=== PATIENT | male | born 1945 | race Caucasian/White ===

== ENCOUNTER 2018-08-14 06:57 | Day surgery (SDC) | payer MEDICARE, BC ==
[~2018-08-14] VITALS: Ht 177.8 cm; Wt 74.8 kg
[2018-08-14] MEDS ORDERED: normal saline 1000ml 1,000 ML IV PRN (07:30)
[2018-08-14] MEDS ORDERED: MELA3TAB PO (07:45)
[2018-08-14] MEDS ORDERED: VERA120T2 PO (07:45)
[2018-08-14] MEDS ORDERED: OLME40TA18 PO (07:45)
[2018-08-14] MEDS ORDERED: LORA0.5T PO (07:45)
[2018-08-14] MEDS ORDERED: CHOL10002 PO (07:45)
[2018-08-14] MEDS ORDERED: ESOM20CA PO (07:45)
[2018-08-14] MEDS ORDERED: TADA5TAB2 PO (07:45)
[2018-08-14] MEDS ORDERED: LEVO175T2 PO (07:45)
[2018-08-14] MEDS ORDERED: OMEG-182 PO (07:45)
[2018-08-14] MEDS ORDERED: LIDOcaine 1%/PF 5ML 10 MG/ML VIAL ONE ×2 (09:16→09:59)
[2018-08-14 09:43] LABS: INR 1.1 INR
[2018-08-14 09:44] LABS: ALBUMIN 3.4 G/DL (3.4-5.0); ANION GAP 6 (8-16); BLOOD UREA NITROGEN 18 MG/DL (7-18); CALCIUM 9.7 MG/DL (8.5-10.1); CHLORIDE 105 MMOL/L (99-107); GLUCOSE 103 MG/DL (70-104); POTASSIUM 3.8 MMOL/L (3.5-5.1); SODIUM 140 MMOL/L (135-145); TOTAL CARBON DIOXIDE 28.9 MMOL/L (24-32); eGFR 73 ML/MIN
[2018-08-14 09:49] LABS: BASOPHILS # (AUTO) 0.1 X10'3 (0-0.2); BASOPHILS % (AUTO) 0.9 % (0-1); HEMOGLOBIN 16.1 g/dl (14.0-17.9)
[2018-08-14 09:50] LABS: EOSINOPHILS % (AUTO) 0.3 % (0-6); HEMATOCRIT 48.8 % (42.0-52.0); LYMPHOCYTES # (AUTO) 1.1 X10'3 (1.1-4.8); LYMPHOCYTES % (AUTO) 15.8 % (21-51); MEAN CORPUSCULAR HEMOGLOBIN 32.3 PG (27.0-31.0); MEAN CORPUSCULAR HGB CONC 32.9 g/dL (33.0-36.5); MEAN PLATELET VOLUME 9.7 FL (7.4-10.4); MONOCYTES # (AUTO) 0.9 X10'3 (0-0.9); MONOCYTES % (AUTO) 12.9 % (2-12); NEUTROPHILS # (AUTO) 4.8 X10'3 (1.8-7.7); NEUTROPHILS % (AUTO) 70.1 % (42-75); PLATELET COUNT 203 X10'3 (140-440); RED BLOOD COUNT 4.98 X10'6 (4.70-6.10); WHITE BLOOD COUNT 6.8 X10'3 (4.5-11.0)
[2018-08-14 10:02] LABS: GIANT PLATELET FEW; LARGE PLATELETS FEW; PLATELET ESTIMATE NORMAL
[2018-08-14 10:06] VITALS: BP 181/107
[2018-08-14] MEDS ORDERED: normal saline 1000ml 1,000 ML IV SCH (10:06)
--- NOTE | 2018-08-14 10:06 | NUR ---
PT PROCEDURE CANCELLED PER MD
[2018-08-14 13:07] VITALS: BP 173/104
== END 2018-08-14 10:15 | disposition home or self-care (01) ==
LOC: SSTAY O 06:57
PROVIDERS: ATTEND Radiology Diagnostic Radiology
DX: R74.8 Abnormal levels of other serum enzymes (principal); Z53.8 Procedure and treatment not carried out for other reasons; I10 Essential (primary) hypertension; Z79.899 Other long term (current) drug therapy
CPT/HCPCS: 36415; 76705; 80048; 85025; 85610; J2001; J7030

== ENCOUNTER 2020-07-29 07:33 | Day surgery (SDC) | payer MEDICARE, BC ==
[2020-07-22 15:26] LABS: BASOPHILS # (AUTO) 0.1 X10'3 (0-0.2); BASOPHILS % (AUTO) 0.9 % (0-1); EOSINOPHILS # (AUTO) 0.1 X10'3 (0-0.9); EOSINOPHILS % (AUTO) 0.9 % (0-6); LYMPHOCYTES # (AUTO) 1.2 X10'3 (1.1-4.8); LYMPHOCYTES % (AUTO) 17.5 % (21-51); MEAN CORPUSCULAR HEMOGLOBIN 32.2 PG (27.0-31.0); MEAN CORPUSCULAR HGB CONC 32.9 g/dL (33.0-36.5); MEAN CORPUSCULAR VOLUME 97.9 FL (78-98); MEAN PLATELET VOLUME 8.8 FL (7.4-10.4); MONOCYTES # (AUTO) 0.8 X10'3 (0-0.9); MONOCYTES % (AUTO) 11.5 % (2-12); NEUTROPHILS # (AUTO) 4.6 X10'3 (1.8-7.7); NEUTROPHILS % (AUTO) 69.2 % (42-75); PRE OP HEMATOCRIT 45.5 % (42.0-52.0); PRE OP PLATELET COUNT 201 X10'3 (140-440); RED BLOOD COUNT 4.65 X10'6 (4.70-6.10); RED CELL DISTRIBUTION WIDTH 15.5 % (11.5-14.5)
[2020-07-22 15:41] LABS: ALBUMIN 3.2 G/DL (3.4-5.0); ALBUMIN/GLOBULIN RATIO 0.6 (1.1-1.5); ALKALINE PHOSPHATASE 89 IU/L (46-116); BLOOD UREA NITROGEN 22 MG/DL (7-18); BUN/CREATININE RATIO 22.2 (5.4-32.0); CALCIUM 9.4 MG/DL (8.5-10.1); CHLORIDE 108 MMOL/L (99-107); CREATININE 0.99 MG/DL (0.60-1.10); PRE OP ALT 54 U/L (30-65); PRE OP ANION GAP 6 (8-16); PRE OP AST 34 U/L (10-37); PRE OP BILIRUB, TOTAL 0.6 MG/DL (0.0-1.0); PRE OP GLUCOSE 112 MG/DL (70-104); PRE OP POTASSIUM 3.8 MMOL/L (3.4-5.1); PRE OP SODIUM 141 MMOL/L (135-145); TOTAL CARBON DIOXIDE 26.6 MMOL/L (24-32); TOTAL PROTEIN 8.2 G/DL (6.4-8.2); eGFR 73 ML/MIN
[2020-07-29] VITALS (15 sets, daily range): BP systolic 124–169; BP diastolic 59–88
[~2020-07-29] VITALS: Ht 177.8 cm; Wt 73.5 kg
[~2020-07-29 07:33] MED LIST: BUPIVAcaine/PF 2.5 mg/ml (0.25%) 30ml vial ONE; CHOL10002 PO; ESOM20CA PO; LEVO175T2 PO; LIDOcaine 1% 30ml preserv. free vial ONE; LORA0.5T PO; MELA3TAB39 PO; OLME40TA18 PO; OMEG-182 PO; TADA5TAB2 PO; TRIA15CR61 TOP; VERA120T2 PO; ceFAZolin 2gm in dextrose, iso 50 ML IV ONE; famotidine 20mg tablet PO ONE; ringers solution, lacted 1,000 ML IV SCH
[2020-07-29] MEDS ORDERED: meperidine/PF 25mg/ml syringe IV PRN ×3 (08:55)
[2020-07-29] MEDS ORDERED: morphine 2 MG/ML inj. syringe IV PRN (08:55)
[2020-07-29] MEDS ORDERED: ringers solution, lacted 1,000 ML IV SCH (08:55)
[2020-07-29] MEDS ORDERED: morphine 4 MG/ML inj SYRINge IV PRN (08:55)
[2020-07-29] MEDS ORDERED: ondansetron/PF 4mg/2ml inj IV PRN (08:55)
[2020-07-29] MEDS ORDERED: proCHLORperazine 10 MG/2 ml inj IV PRN (08:55)
[2020-07-29] MEDS ORDERED: fentaNYL/PF 50MCG/1 ML 2ML syringe ONE (09:57)
[2020-07-29] MEDS ORDERED: midazolam 1 mg/ML 2ml injection ONE (09:58)
[2020-07-29] MEDS ORDERED: rocuronium 10mg/ml inj IV ONE (10:01)
[2020-07-29] MEDS ORDERED: propofol inj 20 ML IV ONE (10:02)
[2020-07-29] MEDS ORDERED: glycopyrrolate 0.2mg/ml inj ONE (11:10)
[2020-07-29] MEDS ORDERED: ondansetron/PF 4mg/2ml inj ONE (11:10)
[2020-07-29] MEDS ORDERED: neostigmine methylsulfate 1 MG/ML 10ml vial ONE (11:10)
[2020-07-29] MEDS ORDERED: HYDROcodone/acetaminophen 10/325mg tab PO PRN (11:30)
[2020-07-29] MEDS ORDERED: HYDROcodone/acetaminophen 5mg/325mg tablet PO PRN (11:30)
--- NOTE | 2020-07-29 11:30 | NUR ---
Received from OR via [facility], accompanied by Anesthesiologist DR GARCIA and report given by Anesthesiologist. PATIENT SLEEPY, DENIES PAIN, V/S WNL, NEUROVASCULAR CHECKS INTACT, 20G PIV LUE, SCD ON, 3 DERMABOND SITES TO ABDOMEN-CDI.
--- NOTE | 2020-07-29 14:45 | NUR ---
AFTER MULTIPLE ATTEMPTS TO VOID AND PT STILL HAVING 250CC ACCORDING TO BLADDER SCAN, F/C 18FR PLACED WITH SOME DISCOMFORT-DIFFICULT TO PASS THE PROSTATE-CLEAR YELLOW URINE OUT, LEG BAG ATTACHED.
--- NOTE | 2020-07-29 15:10 | NUR ---
3 DERMABOND SITES OF ABDOMEN CDI. I HAVE REVIEWED D/C INSTRUCTIONS REGARDING HOME CARE OF F/C AND SURGICAL RECOVERY WITH PATIENT AND FAMILY HAVE VERBALIZED UNDERSTANDING.PATIENT WAS D/C HOME WITH ALL BELONGINGS AND FAMILY GAVE RIDE TO PATIENT. A&OX4, DENIES PAIN, V/S WNL, NEUROVASCULAR CHECKS INTACT, 20G PIV RUE D/C, SCD OFF, TRANSPORT HOME.
[2020-07-30] MEDS ORDERED: NITR100C6 PO (17:38)
== END 2020-07-29 15:10 | disposition home or self-care (01) ==
LOC: PAS 07:33
PROVIDERS: ATTEND Surgery
DX: K42.0 Umbilical hernia with obstruction, without gangrene (principal); K40.90 Unilateral inguinal hernia, without obstruction or gangrene, not specified as recurrent; I10 Essential (primary) hypertension; K74.60 Unspecified cirrhosis of liver; K21.9 Gastro-esophageal reflux disease without esophagitis; F41.9 Anxiety disorder, unspecified; M19.90 Unspecified osteoarthritis, unspecified site; E03.9 Hypothyroidism, unspecified; Z79.899 Other long term (current) drug therapy; Z91.018 Allergy to other foods; Z88.4 Allergy status to anesthetic agent; Z90.49 Acquired absence of other specified parts of digestive tract; Z87.891 Personal history of nicotine dependence; Z85.79 Personal history of other malignant neoplasms of lymphoid, hematopoietic and related tissues; Z80.9 Family history of malignant neoplasm, unspecified
CPT/HCPCS: 36415; 49587; 49650; 80053; 82948; 85025; 93005; 93306; C1781; J2001; J2250; J2405; J2704; J2710; J3010; J3490; A4215; A4618; J7120

== ENCOUNTER 2020-07-30 16:18 | Emergency (ER) | payer MEDICARE, BC ==
[~2020-07-30] VITALS: Ht 180.3 cm; Wt 72.7 kg
[~2020-07-30 16:18] MED LIST changes: -BUPIVAcaine/PF 2.5 mg/ml (0.25%) 30ml vial ONE; -LIDOcaine 1% 30ml preserv. free vial ONE; -ceFAZolin 2gm in dextrose, iso 50 ML IV ONE; -famotidine 20mg tablet PO ONE; -ringers solution, lacted 1,000 ML IV SCH
[2020-07-30 16:25] VITALS: BP 130/67
[2020-07-30 16:58] LABS: CLARITY,URINE CLOUDY (Clear); COLOR,URINE YELLOW (Yellow); GLUCOSE, URINE NEGATIVE (Neg); KETONES,URINE NEGATIVE (Neg); LEUKOCYTE ESTERASE ,URINE TRACE (Neg); NITRITES, URINE NEGATIVE (Neg); OCCULT BLOOD,URINE LARGE (Neg); PH,URINE 5.5 (4.8-8.0); PROTEIN,URINE 30 mg/dl (Neg); UROBILINOGEN,URINE 0.2 E.U/dL (0.2-1.0)
[2020-07-30 17:00] LABS: UA COLLECTION TYPE VOIDED
[2020-07-30 17:05] LABS: BACTERIA,URINE FEW /HPF (Neg); MUCUS STRANDS NONE SEEN /LPF (Neg); RBC,URINE TNTC /HPF (0-2); RENAL CELLS, URINE FEW /HPF; SQUAMOUS EPITHELIAL CELL,UR NONE SEEN /LPF (FEW)
[2020-07-30] MEDS ORDERED: NITR100C6 PO (17:38)
== END 2020-07-30 17:45 | disposition home or self-care (01) ==
LOC: ER 16:18
DX: N39.0 Urinary tract infection, site not specified (principal); Z79.899 Other long term (current) drug therapy
CPT/HCPCS: 81001; 87088; 99283

== ENCOUNTER 2020-07-31 18:44 | Emergency (ER) | payer MEDICARE, BC ==
[~2020-07-31] VITALS: Ht 177.8 cm; Wt 73.2 kg
[~2020-07-31 18:44] MED LIST changes: +NITR100C6 PO
[2020-07-31 18:46] VITALS: BP 190/92
--- NOTE | 2020-07-31 19:51 | NUR ---
BLADDER SCAN: 121 ML. AWARE.
== END 2020-07-31 20:09 | disposition home or self-care (01) ==
LOC: ER 18:45
DX: N99.840 Postprocedural hematoma of a genitourinary system organ or structure following a genitourinary system procedure (principal); N50.89 Other specified disorders of the male genital organs; E70.9 Disorder of aromatic amino-acid metabolism, unspecified; Z87.440 Personal history of urinary (tract) infections; Z79.899 Other long term (current) drug therapy; X58.XXXA Exposure to other specified factors, initial encounter; Y83.8 Other surgical procedures as the cause of abnormal reaction of the patient, or of later complication, without mention of misadventure at the time of the procedure; Y73.3 Surgical instruments, materials and gastroenterology and urology devices (including sutures) associated with adverse incidents
CPT/HCPCS: 99281

== ENCOUNTER 2020-08-07 12:17 | Emergency (ER) | payer MEDICARE, BC ==
[~2020-08-07] VITALS: Ht 177.8 cm; Wt 71.1 kg
[2020-08-07 15:05] LABS: BASOPHILS # (AUTO) 0.1 X10'3 (0-0.2); BASOPHILS % (AUTO) 1.3 % (0-1)
[2020-08-07 15:06] LABS: EOSINOPHILS # (AUTO) 0.2 X10'3 (0-0.9); EOSINOPHILS % (AUTO) 2.1 % (0-6); HEMATOCRIT 45.7 % (42.0-52.0); HEMOGLOBIN 15.2 g/dl (14.0-17.9); LYMPHOCYTES # (AUTO) 1.2 X10'3 (1.1-4.8); LYMPHOCYTES % (AUTO) 16.1 % (21-51); MEAN CORPUSCULAR HEMOGLOBIN 32.4 PG (27.0-31.0); MEAN CORPUSCULAR HGB CONC 33.3 g/dL (33.0-36.5); MEAN CORPUSCULAR VOLUME 97.4 FL (78-98); MEAN PLATELET VOLUME 8.6 FL (7.4-10.4); MONOCYTES # (AUTO) 0.8 X10'3 (0-0.9); MONOCYTES % (AUTO) 11.4 % (2-12); NEUTROPHILS # (AUTO) 4.9 X10'3 (1.8-7.7); NEUTROPHILS % (AUTO) 69.1 % (42-75); PLATELET COUNT 260 X10'3 (140-440); RED CELL DISTRIBUTION WIDTH 15.6 % (11.5-14.5); WHITE BLOOD COUNT 7.1 X10'3 (4.5-11.0)
[2020-08-07 15:13] LABS: PARTIAL THROMBOPLASTIN TIME 27 SECONDS (22-32)
[2020-08-07 15:15] LABS: ALANINE AMINOTRANSFERASE 60 U/L (12-78); ALKALINE PHOSPHATASE 118 IU/L (46-116); ANION GAP 11 (8-16); CALCIUM 9.3 MG/DL (8.5-10.1); CHLORIDE 105 MMOL/L (99-107); CREATININE 0.93 MG/DL (0.60-1.10); POTASSIUM 3.6 MMOL/L (3.5-5.1); SODIUM 141 MMOL/L (135-145); TOTAL CARBON DIOXIDE 25.5 MMOL/L (24-32); eGFR 79 ML/MIN
[2020-08-07 15:29] LABS: ASPARTATE AMINO TRANSFERASE 52 U/L (10-37)
[2020-08-07 15:32] LABS: ALBUMIN 2.8 G/DL (3.4-5.0); ALBUMIN/GLOBULIN RATIO 0.5 (1.1-1.5); BILIRUBIN,TOTAL 0.8 MG/DL (0.1-1.0); BLOOD UREA NITROGEN 19 MG/DL (7-18); BUN/CREATININE RATIO 20.4 (5.4-32.0); GLUCOSE 109 MG/DL (70-104); TOTAL PROTEIN 8.2 G/DL (6.4-8.2)
[2020-08-07] MEDS ORDERED: iohexol 300mg/ml 100ml inj. ONE (15:41)
--- NOTE | 2020-08-07 15:46 | NUR ---
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 I TAKE ATIVAN FOR IT.
[2020-08-07 15:47] VITALS: BP 208/107
== END 2020-08-07 17:34 | disposition home or self-care (01) ==
LOC: ER 12:18
DX: T81.89XA Other complications of procedures, not elsewhere classified, initial encounter (principal); F41.9 Anxiety disorder, unspecified; Z87.440 Personal history of urinary (tract) infections; Z98.890 Other specified postprocedural states; Z79.899 Other long term (current) drug therapy
CPT/HCPCS: 36415; 74177; 80053; 85025; 85610; 85730; 99285; Q9967

== ENCOUNTER 2021-05-23 06:35 | Day surgery (SDC) | payer MEDICARE, BC ==
[~2021-05-23] VITALS: Ht 177.8 cm; Wt 71.8 kg
[2021-05-23] MEDS ORDERED: LIDOcaine 1% 30ml preserv. free vial SQ STA (06:47)
[2021-05-23] MEDS ORDERED: albumin 25% 100mL bottle x 1 IV PRN (07:10)
[2021-05-23 07:26] VITALS: BP 134/68
[2021-05-23 08:55] VITALS: BP 135/79
[2021-05-23 09:01] VITALS: BP 146/63
[2021-05-23 09:16] VITALS: BP 131/71
[2021-05-23 09:31] VITALS: BP 137/74
[2021-05-23 09:46] VITALS: BP 118/84
[2021-05-23 10:07] LABS: GLUCOSE,BODY FLUID 137 MG/DL; LDH,BODY FLUID 65 U/L; TOTAL PROTEIN,BODY FLUID 2.3 G/DL
[2021-05-23 10:15] LABS: BFAPPEAR CLEAR
[2021-05-23 10:16] LABS: BF MESOTHELIAL CELLS MODERATE; BF RBC COUNT 365 /CU MM; BF WBC COUNT 210 /CU MM (0-1000); BFCOLOR YELLOW; BFVOLUME 58 ML; LYMPHOCYTES,BODY FLUID 78 %; MONOCYTES,BODY FLUID 16 %; NEUTROPHILS,BODY FLUID 6 %
== END 2021-05-23 10:05 | disposition home or self-care (01) ==
LOC: SSTAY O 06:35
PROVIDERS: ATTEND Preventive Medicine Aerospace Medicine
DX: J90 Pleural effusion, not elsewhere classified (principal); F41.9 Anxiety disorder, unspecified; K74.60 Unspecified cirrhosis of liver; Z87.440 Personal history of urinary (tract) infections; Z79.899 Other long term (current) drug therapy
CPT/HCPCS: 32555; 82945; 83615; 84157; 87070; 89051

== ENCOUNTER 2021-06-09 06:31 | Day surgery (SDC) | payer MEDICARE, BC ==
[2021-06-09] VITALS (8 sets, daily range): BP systolic 130–160; BP diastolic 73–94
[~2021-06-09] VITALS: Ht 177.8 cm; Wt 73.2 kg
[~2021-06-09 06:31] MED LIST changes: -MELA3TAB39 PO; -NITR100C6 PO
[2021-06-09] MEDS ORDERED: albumin 25% 100mL bottle x 1 IV PRN (07:00)
[2021-06-09] MEDS ORDERED: LIDOcaine 1% 30ml preserv. free vial IJ STA (08:24)
== END 2021-06-09 10:10 | disposition home or self-care (01) ==
LOC: SSTAY O 06:31
PROVIDERS: ATTEND Radiology Vascular & Interventional Radiology
DX: J90 Pleural effusion, not elsewhere classified (principal); K74.60 Unspecified cirrhosis of liver; F41.9 Anxiety disorder, unspecified; Z87.440 Personal history of urinary (tract) infections; Z98.890 Other specified postprocedural states
CPT/HCPCS: 32555

== ENCOUNTER 2021-06-23 06:39 | Day surgery (SDC) | payer MEDICARE, BC ==
[~2021-06-23] VITALS: Ht 177.8 cm; Wt 72.1 kg
[2021-06-23] VITALS (8 sets, daily range): BP systolic 100–115; BP diastolic 62–83
[2021-06-23] MEDS ORDERED: albumin 25% 100mL bottle x 1 IV PRN (07:05)
[2021-06-23] MEDS ORDERED: FURO-150 PO (07:17)
[2021-06-23] MEDS ORDERED: SPIR25TA PO (07:17)
== END 2021-06-23 09:50 | disposition home or self-care (01) ==
LOC: SSTAY O 06:39
PROVIDERS: ATTEND Radiology Vascular & Interventional Radiology
DX: J90 Pleural effusion, not elsewhere classified (principal); K74.60 Unspecified cirrhosis of liver; F41.9 Anxiety disorder, unspecified; Z87.440 Personal history of urinary (tract) infections; Z98.890 Other specified postprocedural states; Z88.8 Allergy status to other drugs, medicaments and biological substances; Z79.899 Other long term (current) drug therapy
CPT/HCPCS: 32555

== ENCOUNTER 2021-06-30 06:14 | Day surgery (SDC) | payer MEDICARE, BC ==
[2021-06-30] VITALS (7 sets, daily range): BP systolic 108–131; BP diastolic 64–77
[~2021-06-30] VITALS: Ht 177.8 cm; Wt 71.4 kg
[~2021-06-30 06:14] MED LIST changes: +FURO-150 PO; +SPIR25TA PO
[2021-06-30] MEDS ORDERED: LIDOcaine 1% 30ml preserv. free vial SQ STA (06:32)
[2021-06-30] MEDS ORDERED: albumin 25% 100mL bottle x 1 IV PRN (06:35)
[2021-06-30] MEDS ORDERED: LIDOcaine 1%/PF 5ML 10 MG/ML VIAL SQ ONE ×2 (07:15→07:20)
[2021-06-30] MEDS ORDERED: LIDOcaine 1%/PF 5ML 10 MG/ML VIAL IJ ONE (07:25)
== END 2021-06-30 09:45 | disposition home or self-care (01) ==
LOC: SSTAY O 06:14
PROVIDERS: ATTEND Radiology Diagnostic Radiology
DX: J90 Pleural effusion, not elsewhere classified (principal); K74.60 Unspecified cirrhosis of liver; F41.9 Anxiety disorder, unspecified; Z87.440 Personal history of urinary (tract) infections; Z79.899 Other long term (current) drug therapy
CPT/HCPCS: 32555; J3490

== ENCOUNTER 2021-07-07 06:56 | Day surgery (SDC) | payer MEDICARE, BC ==
[~2021-07-07] VITALS: Ht 177.8 cm; Wt 71.1 kg
[2021-07-07 07:15] VITALS: BP 97/64
[2021-07-07] MEDS ORDERED: albumin 25% 100mL bottle x 1 IV PRN (07:20)
[2021-07-07] MEDS ORDERED: LIDOcaine 1% 30ml preserv. free vial SQ STA (07:20)
[2021-07-07] MEDS ORDERED: LIDOcaine 1%/PF 5ML 10 MG/ML VIAL IJ ONE (07:40)
--- NOTE | 2021-07-07 08:20 | NUR ---
ultrasound of pt right lung, not enough fluid for thoracentesis. pt c/o abd swelling. ultrasound showed fluid in peritoneum.
--- NOTE | 2021-07-07 09:30 | NUR ---
Call to dr Richards to get order for peritoneal fluid. orders placed.
[2021-07-07 09:40] VITALS: BP 127/47
[2021-07-07 09:45] VITALS: BP 112/76
[2021-07-07 10:00] VITALS: BP 121/73
[2021-07-07 10:10] VITALS: BP 122/76
[2021-07-07 10:50] LABS: GLUCOSE,BODY FLUID 113 MG/DL; LDH,BODY FLUID 38 U/L
[2021-07-07 11:03] LABS: TOTAL PROTEIN,BODY FLUID < 2.0 G/DL
[2021-07-07 11:16] LABS: BFAPPEAR HAZY
[2021-07-07 11:17] LABS: BF MESOTHELIAL CELLS MODERATE; BF RBC COUNT 5225 /CU MM; BF WBC COUNT 280 /CU MM (0-1000); BFCOLOR YELLOW; BFVOLUME 50 ML; LYMPHOCYTES,BODY FLUID 51 %; MONOCYTES,BODY FLUID 24 %; NEUTROPHILS,BODY FLUID 25 %
== END 2021-07-07 10:30 | disposition home or self-care (01) ==
LOC: SSTAY O 06:56
PROVIDERS: ATTEND Radiology Diagnostic Radiology
DX: R18.8 Other ascites (principal); J90 Pleural effusion, not elsewhere classified; F41.9 Anxiety disorder, unspecified; K74.60 Unspecified cirrhosis of liver; Z87.440 Personal history of urinary (tract) infections; Z98.890 Other specified postprocedural states; Z79.899 Other long term (current) drug therapy
CPT/HCPCS: 32555; 49083; 76604; 82945; 83615; 84157; 87070; 88108; 88305; 89051

== ENCOUNTER 2021-07-29 07:57 | Day surgery (SDC) | payer MEDICARE, BC ==
[~2021-07-29] VITALS: Ht 177.8 cm; Wt 66.9 kg
[~2021-07-29 07:57] MED LIST changes: +LIDOcaine 1%/PF 5ML 10 MG/ML VIAL SQ ONE
[2021-07-29] MEDS ORDERED: albumin 25% 100mL bottle x 1 IV PRN (08:20)
[2021-07-29 08:25] VITALS: BP 103/72
[2021-07-29 09:05] VITALS: BP 133/73
== END 2021-07-29 09:38 | disposition home or self-care (01) ==
LOC: SSTAY O 07:57
PROVIDERS: ATTEND Radiology Vascular & Interventional Radiology
DX: R18.8 Other ascites (principal); Z53.8 Procedure and treatment not carried out for other reasons; J90 Pleural effusion, not elsewhere classified; K74.60 Unspecified cirrhosis of liver; F41.9 Anxiety disorder, unspecified; Z87.440 Personal history of urinary (tract) infections; Z88.8 Allergy status to other drugs, medicaments and biological substances; Z79.899 Other long term (current) drug therapy
CPT/HCPCS: 76604; 76705

== ENCOUNTER 2021-12-26 06:29 | Day surgery (SDC) | payer MEDICARE, BC ==
[~2021-12-26] VITALS: Ht 177.8 cm; Wt 72.8 kg
[~2021-12-26 06:29] MED LIST changes: -LIDOcaine 1%/PF 5ML 10 MG/ML VIAL SQ ONE
[2021-12-26 06:50] VITALS: BP 127/61
[2021-12-26] MEDS ORDERED: albumin 25% 100mL bottle x 1 IV PRN (06:50)
[2021-12-26] MEDS ORDERED: MELA3TAB70 PO (07:04)
[2021-12-26] MEDS ORDERED: LENA10CA PO (07:04)
[2021-12-26] MEDS ORDERED: DARA100V (07:04)
[2021-12-26] MEDS ORDERED: ACYC200O4 PO (07:04)
[2021-12-26] MEDS ORDERED: LIDOcaine 1% 30ml preserv. free vial SQ STA (07:47)
--- NOTE | 2021-12-26 08:22 | NUR ---
Pt states he "does not have ANY allergies to ANY medications". Pt states he has tried on "multiple occasions" to take the current drug allergies off of his record. He states "every time" he comes into the hospital "they are listed incorrectly".
[2021-12-26 08:35] VITALS: BP 140/75
[2021-12-26 08:50] VITALS: BP 120/68
[2021-12-26 09:05] VITALS: BP 125/63
[2021-12-26 09:20] VITALS: BP 110/68
== END 2021-12-26 09:40 | disposition home or self-care (01) ==
LOC: SSTAY O 06:29
PROVIDERS: ATTEND Radiology Vascular & Interventional Radiology
DX: R18.8 Other ascites (principal); K74.60 Unspecified cirrhosis of liver; F41.9 Anxiety disorder, unspecified; Z79.899 Other long term (current) drug therapy; Z98.890 Other specified postprocedural states; Z87.440 Personal history of urinary (tract) infections
CPT/HCPCS: 49083; A6258; A6449

== ENCOUNTER 2022-01-12 07:07 | Day surgery (SDC) | payer MEDICARE, BC ==
[~2022-01-12] VITALS: Ht 177.8 cm; Wt 71.0 kg
[2022-01-12] VITALS (10 sets, daily range): BP systolic 103–138; BP diastolic 61–77
[~2022-01-12 07:07] MED LIST changes: +ACYC200O4 PO; +DARA100V; +LENA10CA PO; +MELA3TAB70 PO; -SPIR25TA PO; -VERA120T2 PO
[2022-01-12] MEDS ORDERED: albumin 25% 100mL bottle x 1 IV PRN (07:40)
[2022-01-12] MEDS ORDERED: SPIR50TA PO (07:51)
[2022-01-12] MEDS ORDERED: DEC4T PO (07:51)
[2022-01-12] MEDS ORDERED: PROC-8 PO (07:51)
[2022-01-12] MEDS ORDERED: ASPI-1265 PO (07:51)
[2022-01-12] MEDS ORDERED: ZOMETA INJ (07:51)
[2022-01-12] MEDS ORDERED: ONDA8TAB13 PO (07:51)
[2022-01-12] MEDS ORDERED: LIDOcaine 1%/PF 5ML 10 MG/ML VIAL IJ ONE (07:55)
== END 2022-01-12 11:30 | disposition home or self-care (01) ==
LOC: SSTAY O 07:07
PROVIDERS: ATTEND Radiology Vascular & Interventional Radiology
DX: R18.8 Other ascites (principal); K74.60 Unspecified cirrhosis of liver; F41.9 Anxiety disorder, unspecified; Z87.440 Personal history of urinary (tract) infections; Z79.899 Other long term (current) drug therapy
CPT/HCPCS: 49083; J3490; P9047; A6258; A6449

== ENCOUNTER 2022-01-16 12:05 | Emergency (ER) | payer MEDICARE, BC ==
[~2022-01-16] VITALS: Ht 177.8 cm; Wt 68.6 kg
[~2022-01-16 12:05] MED LIST changes: +ASPI-1265 PO; +DEC4T PO; -ESOM20CA PO; -OLME40TA18 PO; +ONDA8TAB13 PO; +PROC-8 PO; +SPIR50TA PO; +ZOMETA INJ
[2022-01-16 13:10] LABS: BASOPHILS # (AUTO) 0.1 X10'3 (0-0.2); EOSINOPHILS # (AUTO) 0.3 X10'3 (0-0.9)
[2022-01-16 13:12] LABS: BASOPHILS % (AUTO) 1.5 % (0-1); EOSINOPHILS % (AUTO) 6.9 % (0-6); HEMATOCRIT 36.1 % (42.0-52.0); HEMOGLOBIN 12.3 g/dl (14.0-17.9); LYMPHOCYTES # (AUTO) 0.3 X10'3 (1.1-4.8); LYMPHOCYTES % (AUTO) 8.1 % (21-51); MEAN CORPUSCULAR HEMOGLOBIN 34.5 PG (27.0-31.0); MEAN CORPUSCULAR HGB CONC 34.1 g/dL (33.0-36.5); MONOCYTES # (AUTO) 0.2 X10'3 (0-0.9); MONOCYTES % (AUTO) 4.2 % (2-12); NEUTROPHILS # (AUTO) 3.4 X10'3 (1.8-7.7); NEUTROPHILS % (AUTO) 79.3 % (42-75); PLATELET COUNT 187 X10'3 (140-440); RED BLOOD COUNT 3.58 X10'6 (4.70-6.10); WHITE BLOOD COUNT 4.3 X10'3 (4.5-11.0)
[2022-01-16 13:18] LABS: ALANINE AMINOTRANSFERASE 32 U/L (12-78); ALBUMIN 2.3 G/DL (3.4-5.0); ALBUMIN/GLOBULIN RATIO 0.6 (1.1-1.5); ALKALINE PHOSPHATASE 144 IU/L (46-116); ANION GAP 8 (8-16); ASPARTATE AMINO TRANSFERASE 21 U/L (10-37); BILIRUBIN,TOTAL 1.1 MG/DL (0.1-1.0); BLOOD UREA NITROGEN 25 MG/DL (7-18); CALCIUM 8.4 MG/DL (8.5-10.1); CHLORIDE 97 MMOL/L (99-107); CREATININE 1.56 MG/DL (0.60-1.10); LIPASE 61 U/L (73-393); SODIUM 130 MMOL/L (135-145); TOTAL CARBON DIOXIDE 25.2 MMOL/L (24-32); TOTAL PROTEIN 6.1 G/DL (6.4-8.2); eGFR 43 ML/MIN
[2022-01-16 13:22] LABS: GLUCOSE 162 MG/DL (70-104)
[2022-01-16 13:36] LABS: ANISOCYTOSIS 2+; PLATELET ESTIMATE NORMAL
[2022-01-16 13:37] LABS: ACANTHOCYTES FEW; BURR CELLS 1+; ELLIPTOCYTES FEW
[2022-01-16] MEDS ORDERED: normal saline 500ml IV soln 500 ML IV SCH (16:15)
[2022-01-16 17:58] VITALS: BP 138/76
== END 2022-01-16 18:00 | disposition home or self-care (01) ==
LOC: ER 12:06
DX: R50.9 Fever, unspecified (principal); R53.1 Weakness; Z87.448 Personal history of other diseases of urinary system; F41.9 Anxiety disorder, unspecified; E03.9 Hypothyroidism, unspecified; Z79.899 Other long term (current) drug therapy
CPT/HCPCS: 36415; 80053; 82140; 83605; 83690; 84145; 85008; 85025; 87040; 99284; C1758; J7040

== ENCOUNTER 2022-02-03 06:37 | Day surgery (SDC) | payer MEDICARE, BC ==
[2022-02-03] VITALS (8 sets, daily range): BP systolic 132–145; BP diastolic 57–86
[~2022-02-03] VITALS: Ht 172.7 cm; Wt 62.7 kg
[2022-02-03] MEDS ORDERED: LIDOcaine 1%/PF 5ML 10 MG/ML VIAL SQ ONE (06:55)
[2022-02-03] MEDS ORDERED: normal saline 1000ml 1,000 ML IV PRN (06:55)
[2022-02-03] MEDS ORDERED: albumin 25% 100mL bottle x 1 IV PRN (09:50)
[2022-02-03 10:39] LABS: GLUCOSE,BODY FLUID 111 MG/DL; LDH,BODY FLUID 38 U/L
[2022-02-03 11:05] LABS: BF MESOTHELIAL CELLS FEW; BF RBC COUNT 70 /CU MM; BF WBC COUNT 110 /CU MM (0-1000); BFAPPEAR HAZY; BFCOLOR STRAW; BFVOLUME 50 ML; LYMPHOCYTES,BODY FLUID 52 %; MONOCYTES,BODY FLUID 40 %; NEUTROPHILS,BODY FLUID 8 %
[2022-02-03 11:08] LABS: TOTAL PROTEIN,BODY FLUID < 2.0 G/DL
== END 2022-02-03 10:40 | disposition home or self-care (01) ==
LOC: SSTAY O 06:37
PROVIDERS: ATTEND Radiology Vascular & Interventional Radiology
DX: R18.8 Other ascites (principal); F41.9 Anxiety disorder, unspecified; Z87.440 Personal history of urinary (tract) infections; Z79.899 Other long term (current) drug therapy; Z98.890 Other specified postprocedural states; Z79.82 Long term (current) use of aspirin; K74.60 Unspecified cirrhosis of liver
CPT/HCPCS: 49083; 82945; 83615; 84157; 87070; 87077; 87186; 89051; J3490; P9047; A6258; A6449

== ENCOUNTER 2022-02-17 06:34 | Day surgery (SDC) | payer MEDICARE, BC ==
[~2022-02-17] VITALS: Ht 177.8 cm; Wt 71.7 kg
[~2022-02-17 06:34] MED LIST changes: -ACYC200O4 PO; -TRIA15CR61 TOP
[2022-02-17 06:45] VITALS: BP 132/66
[2022-02-17] MEDS ORDERED: albumin 25% 100mL bottle x 1 IV PRN (06:55)
[2022-02-17 08:40] VITALS: BP 159/76
[2022-02-17 08:45] VITALS: BP 143/74
[2022-02-17 09:00] VITALS: BP 136/67
[2022-02-17 09:15] VITALS: BP 142/70
[2022-02-17 09:30] VITALS: BP 133/67
== END 2022-02-17 10:10 | disposition home or self-care (01) ==
LOC: SSTAY O 06:34
PROVIDERS: ATTEND Radiology Vascular & Interventional Radiology
DX: R18.8 Other ascites (principal); F41.9 Anxiety disorder, unspecified; K74.60 Unspecified cirrhosis of liver; Z87.440 Personal history of urinary (tract) infections; Z79.899 Other long term (current) drug therapy; Z98.890 Other specified postprocedural states
CPT/HCPCS: 49083; P9047; A6258; A6449; C1729

== ENCOUNTER 2022-03-03 07:54 | Day surgery (SDC) | payer MEDICARE, BC ==
[~2022-03-03] VITALS: Ht 177.8 cm; Wt 68.3 kg
[2022-03-03] MEDS ORDERED: LIDOcaine 1% 30ml preserv. free vial SQ STA (08:06)
[2022-03-03] MEDS ORDERED: albumin 25% 100mL bottle x 1 IV PRN (08:15)
[2022-03-03 08:30] VITALS: BP 145/80
[2022-03-03 09:30] VITALS: BP 140/69
[2022-03-03 09:45] VITALS: BP 146/107
[2022-03-03 10:00] VITALS: BP 131/63
[2022-03-03 10:15] VITALS: BP 123/68
[2022-03-03 10:30] VITALS: BP 123/60
[2022-03-03 10:41] LABS: GLUCOSE,BODY FLUID 127 MG/DL; LDH,BODY FLUID 35 U/L
[2022-03-03 10:44] LABS: EOSINOPHILS,BODY FLUID 1 %; LYMPHOCYTES,BODY FLUID 26 %; MONOCYTES,BODY FLUID 69 %; NEUTROPHILS,BODY FLUID 4 %
[2022-03-03 10:46] LABS: BF RBC COUNT 285 /CU MM; BF WBC COUNT 140 /CU MM (0-1000); BFAPPEAR CLEAR; BFCOLOR STRAW; BFVOLUME 60 ML
[2022-03-03 10:53] LABS: TOTAL PROTEIN,BODY FLUID < 2.0 G/DL
== END 2022-03-03 10:42 | disposition home or self-care (01) ==
LOC: SSTAY O 07:54
PROVIDERS: ATTEND Radiology Diagnostic Radiology
DX: R18.8 Other ascites (principal); K74.60 Unspecified cirrhosis of liver; F41.9 Anxiety disorder, unspecified; Z98.890 Other specified postprocedural states; Z79.899 Other long term (current) drug therapy
CPT/HCPCS: 49083; 82945; 83615; 84157; 87070; 89051; J3490; P9047; A6258

== ENCOUNTER 2022-03-16 06:43 | Day surgery (SDC) | payer MEDICARE, BC ==
[~2022-03-16] VITALS: Ht 177.8 cm; Wt 72.1 kg
[~2022-03-16 06:43] MED LIST changes: -OMEG-182 PO
[2022-03-16] MEDS ORDERED: albumin 25% 100mL bottle x 1 IV PRN (07:05)
[2022-03-16 07:37] VITALS: BP 131/80
[2022-03-16] MEDS ORDERED: LIDOcaine 1% 30ml preserv. free vial SQ STA (08:36)
[2022-03-16 09:18] VITALS: BP 142/85
[2022-03-16 09:31] VITALS: BP 131/93
[2022-03-16 09:45] VITALS: BP 129/87
[2022-03-16 10:00] VITALS: BP 162/78
[2022-03-16 10:22] VITALS: BP 151/77
== END 2022-03-16 11:10 | disposition home or self-care (01) ==
LOC: SSTAY O 06:43
PROVIDERS: ATTEND Radiology Vascular & Interventional Radiology
DX: R18.8 Other ascites (principal); K74.60 Unspecified cirrhosis of liver; F41.9 Anxiety disorder, unspecified; Z79.899 Other long term (current) drug therapy; Z98.890 Other specified postprocedural states; Z79.82 Long term (current) use of aspirin
CPT/HCPCS: 49083; P9047; A6258; A6449

== ENCOUNTER 2022-03-28 07:23 | Day surgery (SDC) | payer MEDICARE, BC ==
[2022-03-28] VITALS (7 sets, daily range): BP systolic 123–147; BP diastolic 65–90
[~2022-03-28] VITALS: Ht 177.8 cm; Wt 71.8 kg
[2022-03-28] MEDS ORDERED: LIDOcaine 1% 30ml preserv. free vial SQ STA (07:47)
[2022-03-28] MEDS ORDERED: albumin 25% 100mL bottle x 1 IV PRN (08:55)
== END 2022-03-28 10:30 | disposition home or self-care (01) ==
LOC: SSTAY O 07:23
PROVIDERS: ATTEND Radiology Vascular & Interventional Radiology
DX: R18.8 Other ascites (principal); K74.60 Unspecified cirrhosis of liver; F41.9 Anxiety disorder, unspecified; Z79.899 Other long term (current) drug therapy; Z85.79 Personal history of other malignant neoplasms of lymphoid, hematopoietic and related tissues; Z87.440 Personal history of urinary (tract) infections
CPT/HCPCS: 49083; J3490; P9047; A6258

== ENCOUNTER 2022-04-07 06:43 | Day surgery (SDC) | payer MEDICARE, BC ==
[~2022-04-07] VITALS: Ht 177.8 cm; Wt 71.7 kg
[2022-04-07] VITALS (8 sets, daily range): BP systolic 102–154; BP diastolic 60–88
[2022-04-07] MEDS ORDERED: albumin 25% 100mL bottle x 1 IV PRN (07:05)
[2022-04-07] MEDS ORDERED: LIDOcaine 1% 30ml preserv. free vial SQ STA (07:19)
== END 2022-04-07 10:15 | disposition home or self-care (01) ==
LOC: SSTAY O 06:43
PROVIDERS: ATTEND Radiology Vascular & Interventional Radiology
DX: R18.8 Other ascites (principal); K74.60 Unspecified cirrhosis of liver; F41.9 Anxiety disorder, unspecified; Z87.891 Personal history of nicotine dependence; Z98.890 Other specified postprocedural states; Z88.8 Allergy status to other drugs, medicaments and biological substances; Z79.82 Long term (current) use of aspirin; Z79.899 Other long term (current) drug therapy; Z87.440 Personal history of urinary (tract) infections; Z85.79 Personal history of other malignant neoplasms of lymphoid, hematopoietic and related tissues
CPT/HCPCS: 49083; J3490; P9047; A6258

== ENCOUNTER 2022-04-21 07:47 | Day surgery (SDC) | payer MEDICARE, BC ==
[2022-04-21] VITALS (10 sets, daily range): BP systolic 130–148; BP diastolic 75–86
[~2022-04-21] VITALS: Ht 177.8 cm; Wt 70.3 kg
[~2022-04-21 07:47] MED LIST changes: -LENA10CA PO
[2022-04-21] MEDS ORDERED: LIDOcaine 1% 30ml preserv. free vial SQ STA (08:05)
[2022-04-21] MEDS ORDERED: albumin 25% 100mL bottle x 1 IV PRN (08:10)
== END 2022-04-21 10:25 | disposition home or self-care (01) ==
LOC: SSTAY O 07:47
PROVIDERS: ATTEND Radiology Vascular & Interventional Radiology
DX: R18.8 Other ascites (principal); K74.60 Unspecified cirrhosis of liver; F41.9 Anxiety disorder, unspecified; Z87.440 Personal history of urinary (tract) infections; Z98.890 Other specified postprocedural states; Z79.82 Long term (current) use of aspirin; Z88.8 Allergy status to other drugs, medicaments and biological substances; Z79.899 Other long term (current) drug therapy
CPT/HCPCS: 49083; A6258; A6449

== ENCOUNTER 2022-05-02 07:04 | Day surgery (SDC) | payer MEDICARE, BC ==
[~2022-05-02] VITALS: Ht 177.8 cm; Wt 68.3 kg
[2022-05-02] VITALS (9 sets, daily range): BP systolic 95–133; BP diastolic 58–81
[2022-05-02] MEDS ORDERED: LIDOcaine 1% 30ml preserv. free vial SQ STA (07:17)
[2022-05-02] MEDS ORDERED: albumin 25% 100mL bottle x 1 IV PRN (07:30)
[2022-05-02 10:32] LABS: GLUCOSE,BODY FLUID 130 MG/DL; LDH,BODY FLUID 59 U/L
[2022-05-02 10:43] LABS: BF RBC COUNT 100 /CU MM; BF WBC COUNT 275 /CU MM (0-1000); BFAPPEAR CLEAR; BFCOLOR YELLOW; BFVOLUME 60 ML
[2022-05-02 10:44] LABS: BF MESOTHELIAL CELLS OCCASIONAL; LYMPHOCYTES,BODY FLUID 18 %; MONOCYTES,BODY FLUID 11 %; NEUTROPHILS,BODY FLUID 71 %
[2022-05-02 10:52] LABS: TOTAL PROTEIN,BODY FLUID < 2.0 G/DL
== END 2022-05-02 10:11 | disposition home or self-care (01) ==
LOC: SSTAY O 07:04
PROVIDERS: ATTEND Radiology Diagnostic Radiology
DX: R18.8 Other ascites (principal); K74.60 Unspecified cirrhosis of liver; F41.9 Anxiety disorder, unspecified; Z87.440 Personal history of urinary (tract) infections
CPT/HCPCS: 49083; 82945; 83615; 84157; 87070; 89051; J3490; P9047; A6258

== ENCOUNTER 2022-05-23 06:46 | Day surgery (SDC) | payer MEDICARE, BC ==
[~2022-05-23] VITALS: Ht 177.8 cm; Wt 71.0 kg
[~2022-05-23 06:46] MED LIST changes: +ACYC200O2 PO; +KETO5DRO82 EACHEYE; -LORA0.5T PO; -MELA3TAB70 PO; -ONDA8TAB13 PO; -PROC-8 PO
[2022-05-23] MEDS ORDERED: LIDOcaine 1% 30ml preserv. free vial SQ STA (07:12)
[2022-05-23] MEDS ORDERED: albumin 25% 100mL bottle x 1 IV PRN (07:20)
[2022-05-23 07:50] VITALS: BP 127/82
== END 2022-05-23 11:26 | disposition home or self-care (01) ==
LOC: SSTAY O 06:46
PROVIDERS: ATTEND Radiology Diagnostic Radiology
DX: R18.8 Other ascites (principal); Z53.8 Procedure and treatment not carried out for other reasons; K74.60 Unspecified cirrhosis of liver; F41.9 Anxiety disorder, unspecified; Z87.440 Personal history of urinary (tract) infections; Z98.890 Other specified postprocedural states; Z88.8 Allergy status to other drugs, medicaments and biological substances; Z79.82 Long term (current) use of aspirin; Z79.899 Other long term (current) drug therapy
CPT/HCPCS: 49083; 76705; A6258

== ENCOUNTER 2022-06-06 06:50 | Day surgery (SDC) | payer MEDICARE, BC ==
[~2022-06-06] VITALS: Ht 177.8 cm; Wt 73.3 kg
[~2022-06-06 06:50] MED LIST changes: -KETO5DRO82 EACHEYE
[2022-06-06] MEDS ORDERED: albumin 25% 100mL bottle x 1 IV PRN (07:15)
[2022-06-06] MEDS ORDERED: LIDOcaine 1% 30ml preserv. free vial SQ STA (07:17)
[2022-06-06 07:30] VITALS: BP 156/89
[2022-06-06 08:44] VITALS: BP 173/88
[2022-06-06 08:50] VITALS: BP 165/84
[2022-06-06 08:58] VITALS: BP 152/84
[2022-06-06 09:13] VITALS: BP 156/96
== END 2022-06-06 09:35 | disposition home or self-care (01) ==
LOC: SSTAY O 06:50
PROVIDERS: ATTEND Radiology Diagnostic Radiology
DX: R18.8 Other ascites (principal); K74.60 Unspecified cirrhosis of liver; F41.9 Anxiety disorder, unspecified; K75.81 Nonalcoholic steatohepatitis (NASH); I10 Essential (primary) hypertension; C80.1 Malignant (primary) neoplasm, unspecified; K74.00 Hepatic fibrosis, unspecified; Z87.891 Personal history of nicotine dependence; F10.10 Alcohol abuse, uncomplicated; Z88.8 Allergy status to other drugs, medicaments and biological substances; Z98.890 Other specified postprocedural states; Z79.82 Long term (current) use of aspirin; Z79.899 Other long term (current) drug therapy
CPT/HCPCS: 49083; A6258

== ENCOUNTER 2022-06-20 06:50 | Day surgery (SDC) | payer MEDICARE, BC ==
[~2022-06-20] VITALS: Ht 177.8 cm; Wt 69.7 kg
[2022-06-20] MEDS ORDERED: LIDOcaine 1% 30ml preserv. free vial SQ STA (07:06)
[2022-06-20] MEDS ORDERED: albumin 25% 100mL bottle x 1 IV PRN (07:15)
[2022-06-20 07:18] VITALS: BP 141/91
[2022-06-20 08:16] VITALS: BP 153/76
[2022-06-20 08:31] VITALS: BP 151/86
[2022-06-20 08:49] VITALS: BP 149/80
[2022-06-20 09:27] LABS: GLUCOSE,BODY FLUID 135 MG/DL; LDH,BODY FLUID 47 U/L
[2022-06-20 09:33] LABS: TOTAL PROTEIN,BODY FLUID < 2.0 G/DL
== END 2022-06-20 08:55 | disposition home or self-care (01) ==
LOC: SSTAY O 06:50
PROVIDERS: ATTEND Radiology Vascular & Interventional Radiology
DX: R18.8 Other ascites (principal); K74.60 Unspecified cirrhosis of liver; F41.9 Anxiety disorder, unspecified; Z87.440 Personal history of urinary (tract) infections; Z98.890 Other specified postprocedural states; Z88.8 Allergy status to other drugs, medicaments and biological substances; Z79.899 Other long term (current) drug therapy
CPT/HCPCS: 49083; 82945; 83615; 84157; 87070; J3490; A6258; A6449

== ENCOUNTER 2022-07-07 07:58 | Day surgery (SDC) | payer MEDICARE, BC ==
[~2022-07-07] VITALS: Ht 177.8 cm; Wt 71.0 kg
[~2022-07-07 07:58] MED LIST changes: -ASPI-1265 PO
[2022-07-07] MEDS ORDERED: LIDOcaine 1% 30ml preserv. free vial SQ STA (08:09)
[2022-07-07 08:14] VITALS: BP 146/82
[2022-07-07] MEDS ORDERED: albumin 25% 100mL bottle x 1 IV PRN (08:15)
[2022-07-07 09:14] VITALS: BP 148/81
[2022-07-07 10:32] VITALS: BP 148/81
[2022-07-07 10:45] VITALS: BP 150/80
[2022-07-07 11:00] VITALS: BP 149/76
[2022-07-07 11:15] VITALS: BP 179/81
== END 2022-07-07 11:35 | disposition home or self-care (01) ==
LOC: SSTAY O 07:58
PROVIDERS: ATTEND Radiology Vascular & Interventional Radiology
DX: R18.8 Other ascites (principal); R14.0 Abdominal distension (gaseous); K74.60 Unspecified cirrhosis of liver; F41.9 Anxiety disorder, unspecified; K75.81 Nonalcoholic steatohepatitis (NASH); Z88.8 Allergy status to other drugs, medicaments and biological substances; Z87.440 Personal history of urinary (tract) infections; Z79.899 Other long term (current) drug therapy
CPT/HCPCS: 49083; J3490; A6258; A6449

== ENCOUNTER 2022-08-18 07:32 | Day surgery (SDC) | payer MEDICARE, BC ==
[~2022-08-18] VITALS: Ht 177.8 cm; Wt 67.2 kg
[2022-08-18] MEDS ORDERED: LIDOcaine 1% 30ml preserv. free vial SQ STA (07:45)
[2022-08-18 08:00] VITALS: BP 146/81
[2022-08-18] MEDS ORDERED: albumin 25% 100mL bottle x 1 IV PRN (08:50)
== END 2022-08-18 09:10 | disposition home or self-care (01) ==
LOC: SSTAY O 07:32
PROVIDERS: ATTEND Radiology Diagnostic Radiology
DX: R18.8 Other ascites (principal); Z53.8 Procedure and treatment not carried out for other reasons; K74.60 Unspecified cirrhosis of liver; F41.9 Anxiety disorder, unspecified; K75.81 Nonalcoholic steatohepatitis (NASH); Z87.440 Personal history of urinary (tract) infections; Z98.890 Other specified postprocedural states; Z88.8 Allergy status to other drugs, medicaments and biological substances; Z79.899 Other long term (current) drug therapy
CPT/HCPCS: 76705; A6258

== ENCOUNTER 2022-09-22 07:19 | Day surgery (SDC) | payer MEDICARE, BC ==
[2022-09-22 07:40] VITALS: BP 167/78
[2022-09-22] MEDS ORDERED: LIDOcaine 1%/PF 5ML 10 MG/ML VIAL SQ ONE (07:50)
[2022-09-22] MEDS ORDERED: LOPE-190 PO (07:55)
[2022-09-22 09:15] VITALS: BP 147/85
[2022-09-22 09:30] VITALS: BP 136/76
[2022-09-22 09:45] VITALS: BP 141/73
[2022-09-22 10:00] VITALS: BP 141/77
[2022-09-22 10:41] LABS: BF WBC COUNT 175 /CU MM (0-1000); BFAPPEAR CLEAR; BFCOLOR YELLOW; BFVOLUME 48 ML; LYMPHOCYTES,BODY FLUID 32 %; MONOCYTES,BODY FLUID 65 %; NEUTROPHILS,BODY FLUID 3 %
[2022-09-22 10:42] LABS: BF MESOTHELIAL CELLS MODERATE; BF RBC COUNT 170 /CU MM
[2022-09-22 10:43] LABS: GLUCOSE,BODY FLUID 119 MG/DL; LDH,BODY FLUID 53 U/L; TOTAL PROTEIN,BODY FLUID 2.3 G/DL
== END 2022-09-22 10:00 | disposition home or self-care (01) ==
LOC: SSTAY O 07:19
PROVIDERS: ATTEND Radiology Vascular & Interventional Radiology
DX: R18.8 Other ascites (principal); K74.60 Unspecified cirrhosis of liver; F41.9 Anxiety disorder, unspecified; K75.81 Nonalcoholic steatohepatitis (NASH); Z87.440 Personal history of urinary (tract) infections; Z85.79 Personal history of other malignant neoplasms of lymphoid, hematopoietic and related tissues; Z88.8 Allergy status to other drugs, medicaments and biological substances; Z98.890 Other specified postprocedural states; Z79.899 Other long term (current) drug therapy
CPT/HCPCS: 49083; 82945; 83615; 84157; 87070; 89051; J3490; 88108; 88305; 88341; 88342; A6258

== ENCOUNTER 2022-11-10 07:01 | Day surgery (SDC) | payer MEDICARE, BC ==
[~2022-11-10] VITALS: Ht 177.8 cm; Wt 66.3 kg
[~2022-11-10 07:01] MED LIST changes: +LOPE-190 PO
[2022-11-10 07:15] VITALS: BP 144/74
[2022-11-10] MEDS ORDERED: albumin 25% 100mL bottle x 1 IV PRN (07:30)
--- NOTE | 2022-11-10 09:25 | NUR ---
Procedure cancelled. Ultrasound showed limited fluid to drain. Patient refused wheelchair for discharge. Patient ambulated to lobby.
== END 2022-11-10 09:25 | disposition home or self-care (01) ==
LOC: SSTAY O 07:01
PROVIDERS: ATTEND Radiology Vascular & Interventional Radiology
DX: R18.8 Other ascites (principal); Z53.8 Procedure and treatment not carried out for other reasons; K74.60 Unspecified cirrhosis of liver; F41.9 Anxiety disorder, unspecified; K75.81 Nonalcoholic steatohepatitis (NASH); Z85.79 Personal history of other malignant neoplasms of lymphoid, hematopoietic and related tissues; Z98.890 Other specified postprocedural states; Z87.440 Personal history of urinary (tract) infections; Z88.8 Allergy status to other drugs, medicaments and biological substances; Z79.899 Other long term (current) drug therapy
CPT/HCPCS: 76705; A6258; A6449

== ENCOUNTER 2023-02-27 06:51 | Day surgery (SDC) | payer MEDICARE, BC ==
[~2023-02-27] VITALS: Ht 177.8 cm; Wt 68.0 kg
[2023-02-27 07:09] VITALS: BP 135/73; PULSE 90; RESP 15; TEMP 97.9; O2SAT 97
[2023-02-27] MEDS ORDERED: albumin 25% 100mL bottle x 1 IV PRN (07:10)
[2023-02-27 08:44] VITALS: BP 152/98; PULSE 91; RESP 16; O2SAT 97
[2023-02-27 09:00] VITALS: BP 137/77; PULSE 86; RESP 16; O2SAT 97
[2023-02-27 09:15] VITALS: BP 134/73; PULSE 82; RESP 16; O2SAT 97
== END 2023-02-27 09:20 | disposition home or self-care (01) ==
LOC: SSTAY O 06:51
PROVIDERS: ATTEND Radiology Vascular & Interventional Radiology
DX: R18.8 Other ascites (principal); R14.0 Abdominal distension (gaseous); F41.9 Anxiety disorder, unspecified; E07.9 Disorder of thyroid, unspecified; Z87.440 Personal history of urinary (tract) infections; Z79.890 Hormone replacement therapy; Z79.899 Other long term (current) drug therapy; Z88.8 Allergy status to other drugs, medicaments and biological substances
CPT/HCPCS: 49083; C1729; A6258

== ENCOUNTER 2023-04-10 07:50 | Day surgery (SDC) | payer MEDICARE, BC ==
[~2023-04-10] VITALS: Ht 177.8 cm; Wt 69.3 kg
[2023-04-10] VITALS (7 sets, daily range): BP systolic 116–143; BP diastolic 68–84; PULSE 88–94; RESP 16–18; TEMP 98.4; O2SAT 96–97
[2023-04-10] MEDS ORDERED: normal saline 1000ml 1,000 ML IV PRN (08:20)
[2023-04-10] MEDS ORDERED: albumin 25% 100mL bottle x 1 IV PRN (08:20)
== END 2023-04-10 10:35 | disposition home or self-care (01) ==
LOC: SSTAY O 07:50
PROVIDERS: ATTEND Radiology Diagnostic Radiology
DX: R18.8 Other ascites (principal); R14.0 Abdominal distension (gaseous); F41.9 Anxiety disorder, unspecified; K74.60 Unspecified cirrhosis of liver; K75.81 Nonalcoholic steatohepatitis (NASH); Z87.440 Personal history of urinary (tract) infections; Z98.890 Other specified postprocedural states; Z85.79 Personal history of other malignant neoplasms of lymphoid, hematopoietic and related tissues; Z88.8 Allergy status to other drugs, medicaments and biological substances
CPT/HCPCS: 49083; C1729; P9047; A6258; A6449